=== PATIENT | male | born 1975 | race Caucasian/White ===

== ENCOUNTER 2023-05-10 20:51 | Emergency (ER) | payer OTHER, SELFPAY ==
[2023-05-10 21:31] VITALS: BP 114/58
[2023-05-11 00:43] VITALS: BP 110/64
[2023-05-11] MEDS: ANCEF 1000 MG IV (02:03)
--- NOTE | 2023-05-11 02:36 | ED.GENMED ---
History of Present Illness
General
Chief Complaint: Musculo-Skeletal Complaint
Source: patient and spouse
Exam Limitations: none
Time Seen by Provider: 05/11/23 00:43
Nursing documentation reviewed up to this point in time: agreed with
Travel History
Have you had any contact with someone who has COVID-19?: No
Do you have any symptoms of coronavirus? Fever > 100 degrees, chills, cough, shortness of breath, sore throat, loss of taste or smell, muscle aches, or headache?: No
History of Present Illness
History of Present Illness:
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 Also got hit in the left lateral
rib. Denies any abdominal pain chest pain shortness of breath nausea vomiting numbness weakness. Denies additional injuries otherwise.
Review of Systems
Review of Systems
Allergies reviewed?: Yes
All Other Systems: ROS reviewed and negative except as documented in HPI and ROS
Phy Exam
Physical Exam
Physical Exam:
GENERAL: Alert , in no apparent distress
EYE: pupils equal and reactive
NECK: Supple, no significant adenopathy.
ENT: o/p clr, mmm.
CARDIAC: Regular rate and rhythm .
LUNGS: Clear breath sounds bilaterally, no acute respiratory distress, no wheezes/rales/rhonchi
ABDOMEN: Soft, without focal tenderness, no r/g, no cvat
NEUROLOGICAL: Alert and oriented, no focal neuro deficits
SKIN: Distal avulsion of the right middle finger occurring just bulbar to the distal nail involving the portion of the finger in oblique fashion. No obvious bone is visible. Warm and dry, skin intact.
MUSCULOSKELETAL: No edema, well perfused.
PSYCH: Normal and appropriate interaction.
Course
Orders/Labs/Results
Orders:
Orders
05/10/23 21:33
Finger(s)/Thumb 2 View Lt [CR Finger(s)/thumb Min 2 Vw Lt] Urgent
Comment:
Reason For Exam: injury
05/10/23 21:34
Ribs, Left 3 View W/PA Chest CR [CR Ribs-left 3 Vw W/pa Chest] Urgent
Comment:
Reason For Exam: injury
05/11/23 01:03
CeFAZolin SODIUM [Ancef] 1,000 mg .ROUTE .STK-MED ONE
05/11/23 02:02
CeFAZolin SODIUM [Ancef] 1,000 mg IV NOW STA
05/11/23 02:34
Tetanus/Diphth/Acelpertussis [Adacel] 0.5 ml IM .ONCE ONE
05/11/23 02:37
Tetanus/Diphth/Acelpertussis [Adacel] 0.5 ml .ROUTE .STK-MED ONE
Vital Signs
Initial and Last Documented VS:
Initial Vital Signs
Temp Pulse Resp BP Pulse Ox
98.6 F 61 18 114/58 98
05/10/23 21:31 05/10/23 21:31 05/10/23 21:31 05/10/23 21:31 05/10/23 21:31
Last Documented Vital Signs
Temp Pulse Resp BP Pulse Ox
98.6 F 53 20 110/64 98
05/10/23 21:31 05/11/23 00:43 05/11/23 00:43 05/11/23 00:43 05/11/23 00:43
Procedures
Splinting/Sling Placement
Right Middle Finger:
Procedure completed by: Me
Pre-splint extermity exam: neurovascular intact
Type of splint: aluminium finger
Splint material: aluminum-foam
Splint checked by provider?: Yes
Normal distal neurovascular exam?: Yes
MDM/Problems Addressed
MDM/Problems Addressed:
47-year-old male presenting to the emergency department today with concerns of a distal right middle finger avulsion. This was unable to be specifically sutured considering there was a complete loss of the distal tissue. Did not involve the
nailbed. This was cleaned thoroughly he was given a dose of Ancef bandaged splinted and will follow-up with hand surgery. He did have a distal tuft fracture as well. Otherwise did have some mild pain to the left lateral ribs. No abdominal pain
no shortness of breath clear lungs. X-ray without signs of fracture. Otherwise stable for outpatient management. Return precautions given.
*Critical Care Note
Total Time (30-74mins, 75-104mins- exclusive of procedures): Not Applicable
ED Attending Note
-
Portions of this chart may have been created with voice recognition software.� Occasional wrong word or��sound alike� substitutions may have occurred due to the inherent limitations of voice recognition software.
Discharge Plan
Departure
Patient Disposition: Home (Routine Discharge)
Date of Disposition: 05/11/23
Time of Disposition: 02:36
Patient with high blood pressure during this ER visit?: No
Condition: Good
Covid-19: Not Applicable
Discharge Problem:
Rib pain, Avulsion of fingertip, Open fracture of tuft of distal phalanx of finger
Instructions: Amputation of the Finger or Fingertip (DC)
Prescriptions:
New
cephalexin 500 mg capsule
500 mg PO QID 3 Days Qty: 12 0RF
Referrals:
Charlie Wharton MD [Active] - Follow up in 2-3 days
Galileo Benjamin MD [Family Provider] -
Activity Restrictions/Additional Instructions:
You came to the emergency department today with concerns of avulsion of your right middle finger. This was cleaned thoroughly and bandaged. You have a distal fracture. Please keep the area clean covered and take Keflex 4 times daily over the next
3 days. Return to the emergency department for any worsening, new or concerning symptoms. Please follow closely with orthopedics.
Interventions
Interventions:
*Risk Screen - Suicide Last Done: 05/11/23 00:43
*General Assessment Last Done: 05/10/23 21:31
*Neglect/Abuse Screening Last Done: 05/11/23 02:11
ED- Fall Risk Assessment Last Done: 05/11/23 00:43
*ED COVID-19 Vaccine History Last Done: 05/10/23 21:31
ED-Musculoskeletal Assessment Last Done: 05/11/23 00:43
[2023-05-11] MEDS: ADACEL 0.5 ML IM (02:49)
== END 2023-05-11 04:00 | disposition home or self-care (01) ==
LOC: EMR 20:51
PROVIDERS: EMERGENCY PHYSICIAN Emergency Medicine; FAMILY PHYSICIAN Internal Medicine
DX: S62.633B Displaced fracture of distal phalanx of left middle finger, initial encounter for open fracture (principal); S29.9XXA Unspecified injury of thorax, initial encounter; R07.81 Pleurodynia; W23.0XXA Caught, crushed, jammed, or pinched between moving objects, initial encounter; Y93.89 Activity, other specified; Y92.89 Other specified places as the place of occurrence of the external cause; Y99.0 Civilian activity done for income or pay
CPT/HCPCS: 99284; 29130; 71101; 73140; 90715

== ENCOUNTER 2023-12-28 11:39 | Emergency (ER) | payer SELFPAY ==
[2023-12-28 11:44] VITALS: BP 116/70
[2023-12-28] MEDS: KEFLEX 500 MG PO (13:15)
[2023-12-28 13:20] VITALS: BP 118/81
--- NOTE | 2024-01-21 02:40 | ED.GENMED ---
History of Present Illness
General
Chief Complaint: Skin Surface Trauma
Source: patient
Exam Limitations: none
Time Seen by Provider: 12/28/23 12:37
History of Present Illness
History of Present Illness:
Patient cut his hand with a chainsaw the day before. He was changing the blade of the chainsaw.
Review of Systems
Review of Systems
All Other Systems: Not applicable
Phy Exam
Physical Exam
Physical Exam:
General: Nontoxic appearing in no distress
Skin: Warm and dry, no rash
Neuro: Alert, nontoxic, grossly nonfocal
Psychiatric: Good eye contact and appropriate
Musculoskeletal: Laceration to the palm of the left hand near the first and CP joint. Decreased sensation to the ulnar aspect of the thumb. Motor exam intact. Wound is somewhat wet appearing. No foreign body.
Course
Orders/Labs/Results
Orders:
Orders
12/28/23 13:06
Cephalexin Monohydrate [Keflex] 500 mg PO NOW STA
Vital Signs
Initial and Last Documented VS:
Initial Vital Signs
Temp Pulse Resp BP Pulse Ox
98.3 F 60 16 116/70 98
12/28/23 11:44 12/28/23 11:44 12/28/23 11:44 12/28/23 11:44 12/28/23 11:44
Last Documented Vital Signs
Temp Pulse Resp BP Pulse Ox
98.3 F 65 16 118/81 98
12/28/23 11:44 12/28/23 13:20 12/28/23 13:20 12/28/23 13:20 12/28/23 13:20
MDM/Problems Addressed
Differential Diagnosis Includes:
Discussed with hand surgery. Wound care and management and close follow-up for likely exploratory surgery
*Critical Care Note
Total Time (30-74mins, 75-104mins- exclusive of procedures): Not Applicable
ED Attending Note
-
Portions of this chart may have been created with voice recognition software.� Occasional wrong word or��sound alike� substitutions may have occurred due to the inherent limitations of voice recognition software.
Discharge Plan
Departure
Patient Disposition: Home (Routine Discharge)
Date of Disposition: 12/28/23
Time of Disposition: 13:02
Patient with high blood pressure during this ER visit?: No
Discharge Problem:
Large laceration left hand
Instructions: Wound Care (DC)
Prescriptions:
No Action
No Current Medications
0
Referrals:
Diogenes Teresa MD [Active] - Tomorrow
Galileo Benjamin MD [Family Provider] -
Activity Restrictions/Additional Instructions:
10 am tomorrow
Interventions
Interventions:
*Risk Screen - Suicide Last Done: 12/28/23 11:44
*General Assessment Last Done: 12/28/23 11:44
*Neglect/Abuse Screening Last Done: 12/28/23 11:44
ED- Fall Risk Assessment Last Done: 12/28/23 13:20
*ED COVID-19 Vaccine History Last Done: 12/28/23 12:19
*Nursing Disposition Last Done: 12/28/23 13:20
ED-Skin Assessment Last Done: 12/28/23 12:19
Discharge Date and Time
Discharge Date/Time: 12/28/23 13:20
Print Language: ICELANDIC
== END 2023-12-28 13:20 | disposition home or self-care (01) ==
LOC: EMR 11:39
PROVIDERS: EMERGENCY PHYSICIAN Emergency Medicine; FAMILY PHYSICIAN Internal Medicine
DX: S61.412A Laceration without foreign body of left hand, initial encounter (principal); W29.3XXA Contact with powered garden and outdoor hand tools and machinery, initial encounter
CPT/HCPCS: 99282

== ENCOUNTER 2023-12-30 06:27 | Day surgery (SDC) | payer SELFPAY ==
[2023-12-30] VITALS (10 sets, daily range): BP systolic 106–133; BP diastolic 57–77; BMI 28.7
[2023-12-30] MEDS: TYLENOL 1000 MG PO (11:59)
[2023-12-30] MEDS: NORMOSOL-R/PLASMALYTE-A 1000 IV (12:00)
== END 2023-12-30 17:25 | disposition home or self-care (01) ==
LOC: SDS 06:27
PROVIDERS: ATTENDING PHYSICIAN Orthopaedic Surgery
DX: S64.02XA Injury of ulnar nerve at wrist and hand level of left arm, initial encounter (principal); S64.32XA Injury of digital nerve of left thumb, initial encounter; W29.3XXA Contact with powered garden and outdoor hand tools and machinery, initial encounter
CPT/HCPCS: 20103; 12001